=== PATIENT | female | born 1995 | race Two or more races ===

== ENCOUNTER 2024-01-09 01:27 | Emergency (ER) | payer OTHER ==
[~2024-01-09] VITALS: Ht 160 cm; Wt 61.2 kg
[2024-01-09 01:29] VITALS: BP 135/76; TEMP 98.2
[2024-01-09 03:33] VITALS: O2SAT 97
== END 2024-01-09 03:39 ==
LOC: ER 01:29
DX: F15.10 Other stimulant abuse, uncomplicated (principal)